=== PATIENT | male | born 1990 | race Two or more races ===

== ENCOUNTER 2023-06-04 18:17 | Emergency (ER) | payer BC ==
[~2023-06-04] VITALS: Ht 167.6 cm; Wt 48.0 kg
[2023-06-04 18:24] VITALS: BP 141/94; PULSE 91; RESP 16; TEMP 98.3; O2SAT 98
== END 2023-06-04 18:50 | disposition left against medical advice (07) ==
LOC: ER 18:17
DX: K08.89 Other specified disorders of teeth and supporting structures (principal); Z53.21 Procedure and treatment not carried out due to patient leaving prior to being seen by health care provider
CPT/HCPCS: 99281

== ENCOUNTER 2024-01-03 11:22 | Emergency (ER) | payer BC ==
[~2024-01-03] VITALS: Ht 154.9 cm; Wt 58.0 kg
[2024-01-03 11:28] VITALS: O2SAT 98
[2024-01-03 11:48] LABS: BASOPHILS % 0.5 % (0.0-2.0); EOSINOPHILS % 0.6 % (0.0-5.0); HEMATOCRIT. 43.9 % (42.0-52.0); HEMOGLOBIN. 14.8 g/dL (14.0-18.0); LYMPHOCYTES % 25.2 % (20.0-50.0); MEAN CORPUSCULAR HEMOGLOBIN 29.4 pg (28.0-32.0); MEAN CORPUSCULAR HGB CONC 33.8 g/dL (31.0-37.0); MEAN PLATELET VOLUME 8.1 fl (7.4-10.4); MONOCYTES % 3.5 % (2.0-8.0); NEUTROPHILS % 70.2 % (40.0-76.0); PLATELET 227 x1000/uL (130-400); RED BLOOD CELL COUNT 5.04 mill/uL (4.7-6.1); RED CELL DISTRIBUTION WIDTH 13.3 % (11.6-14.6); WHITE BLOOD COUNT 6.6 x1000/uL (4.5-11.0)
[2024-01-03 11:57] LABS: CHLORIDE 103 mEq/L (98-107); POTASSIUM 3.9 mEq/L (3.5-5.1); SODIUM 137 mEq/L (136-145)
[2024-01-03 11:58] LABS: CALCIUM 9.7 mg/dL (8.7-10.4); CARBON DIOXIDE 27 mEq/L (21-32)
[2024-01-03 12:03] LABS: CREATININE 0.9 mg/dL (0.6-1.3); GLUCOSE 119 mg/dL (70-105); UREA NITROGEN BLOOD 8 mg/dL (9-23)
[2024-01-03 13:04] LABS: CLARITY URINE CLOUDY (CLEAR); COLOR URINE YELLOW (YELLOW); GLUCOSE URINE NEGATIVE (NEGATIVE); KETONES URINE NEGATIVE (NEGATIVE); LEUKOCYTE ESTERASE URINE NEGATIVE (NEGATIVE); NITRITE URINE NEGATIVE (NEGATIVE); OCCULT BLOOD URINE NEGATIVE (NEGATIVE); PH URINE 7.5 (4.5-8.0); PROTEIN URINE NEGATIVE (NEGATIVE); SPECIFIC GRAVITY URINE 1.012 (1.005-1.030); UROBILINOGEN URINE 0.2 E.U./dL (0.2-1.0)
[2024-01-03 13:20] LABS: AMORPHOUS SEDIMENT URINE 3+ /lpf; BACTERIA URINE NONE SEEN; RBC URINE 0-2 /hpf (0-2); SQUAMOUS EPITHELIAL CELL URINE RARE /lpf (RARE/1+); WBC URINE NONE SEEN /hpf (0-2)
[2024-01-03 15:54] VITALS: BP 110/58; PULSE 88; RESP 16; TEMP 98.5
== END 2024-01-03 15:49 | disposition home or self-care (01) ==
LOC: ER 11:22
DX: R42 Dizziness and giddiness (principal); R00.2 Palpitations; F41.9 Anxiety disorder, unspecified; F19.90 Other psychoactive substance use, unspecified, uncomplicated; Z98.890 Other specified postprocedural states
CPT/HCPCS: 36415; 80048; 81003; 85025; 93005; 99284

== ENCOUNTER 2025-05-12 14:24 | Inpatient (IN) | payer SELFPAY ==
[~2025-05-12] VITALS: Ht 157.5 cm; Wt 61.7 kg
[2025-05-12 14:44] VITALS: O2SAT 98
[2025-05-12 16:17] LABS: BASOPHILS % 0.5 % (0.0-2.0); EOSINOPHILS % 0.0 % (0.0-5.0); HEMATOCRIT. 45.1 % (42.0-52.0); HEMOGLOBIN. 15.3 g/dL (14.0-18.0); LYMPHOCYTES % 8.3 % (20.0-50.0); MEAN PLATELET VOLUME 8.5 fl (7.4-10.4); MONOCYTES % 7.1 % (2.0-8.0); NEUTROPHILS % 84.1 % (40.0-76.0); PLATELET 186 x1000/uL (130-400); RED BLOOD CELL COUNT 5.32 mill/uL (4.7-6.1); RED CELL DISTRIBUTION WIDTH 13.7 % (11.6-14.6)
[2025-05-12 16:29] LABS: CREATININE 1.2 mg/dL (0.6-1.3); TROPONIN I HIGH SENSITIVITY < 4 ng/L (3.0-53); UREA NITROGEN BLOOD 8 mg/dL (9-23)
[2025-05-12 16:30] LABS: PROTEIN TOTAL 7.4 g/dL (6.0-8.3)
[2025-05-12 16:31] LABS: ASPARTATE AMINOTRANSFERASE 19 IU/L (<34); BILIRUBIN DIRECT 0.2 mg/dL (<=3.0); BILIRUBIN TOTAL 0.6 mg/dL (0.1-1.0)
[2025-05-12] MEDS: IBUPROFEN 600MG TABLET PO ONE ×2 (16:58→17:18)
[2025-05-12] MEDS: SODIUM CHLORIDE 0.9% (SEPSIS BOLUS) IV ONE ×2 (16:58→17:18)
[2025-05-12 16:59] LABS: INFLUENZA TYPE A Presumptive Negative (Pres. Neg.)
[2025-05-12 17:00] LABS: INFLUENZA TYPE B Presumptive Negative (Pres. Neg.)
[2025-05-12 17:01] LABS: RESPIRATORY SYNCYTIAL VIRUS Not Detected (Not Detectd)
[2025-05-12] MEDS: ACETAMINOPHEN 325MG TABLET PO ONE (17:18)
[2025-05-12] MEDS: CEFTRIAXONE 1GM/50ML 50 ML IV ONE (17:18)
[2025-05-12] MEDS: ACETAMINOPHEN 500MG TABLET PO ONE (17:23)
[2025-05-12 17:45] LABS: ETHANOL BLOOD < 10 mg/dL (<10)
[2025-05-12 17:46] LABS: TROPONIN I HIGH SENSITIVITY < 4 ng/L (3.0-53)
[2025-05-12] MEDS: AZITHROMYCIN 500MG/250ML 250 ML IV ONE (17:51)
[2025-05-12] MEDS ORDERED: DOCUSATE SODIUM 100MG CAPSULE PO PRN (20:30)
[2025-05-12] MEDS ORDERED: MAGNESIUM/ALUMINUM HYDROXIDE/SIMETHICONE 30ML UDC PO PRN (20:30)
[2025-05-12] MEDS ORDERED: DEXT 5%/LACTATED RINGERS 1,000 ML IV NR (20:30)
[2025-05-12] MEDS ORDERED: ACETAMINOPHEN 325MG TABLET PO PRN ×2 (20:30)
[2025-05-12] MEDS ORDERED: GUAIFENESIN 200MG/10ML SUGAR FREE UDC PO PRN (20:30)
[2025-05-12] MEDS ORDERED: ONDANSETRON HCL 4MG/2ML INJ IV PRN (20:30)
[2025-05-12] MEDS ORDERED: CLONIDINE 0.1MG TABLET PO PRN (20:30)
[2025-05-12] MEDS ORDERED: IPRATROPIUM/ALBUTEROL 0.5-3(2.5)MG/3ML NEB HHN PRN (20:30)
[2025-05-12] MEDS ORDERED: AZITHROMYCIN 500MG/250ML 250 ML IV SCH (20:45)
[2025-05-12] MEDS ORDERED: KETOROLAC 15MG/ML VIAL IV PRN (20:45)
[2025-05-12 21:00] VITALS: BP 100/59; PULSE 84; RESP 18; TEMP 37.808
[2025-05-12] MEDS ORDERED: AZITHROMYCIN 500 MG TABLET PO SCH (21:00)
[2025-05-12] MEDS: FAMOTIDINE 20MG TABLET PO SCH (21:40)
[2025-05-12] MEDS: LACTATED RINGERS 1,000 ML IV SCH (21:41)
[2025-05-12] MEDS: MAGNESIUM 2 G PREMIX 50 ML IV NR (21:41)
[2025-05-12] MEDS: GUAIFENESIN-DM 200MG-20MG/10ML UDC PO NR (21:41)
[2025-05-12] MEDS: MULTIVITAMINS,THER W-MINERALS TABLET PO SCH (21:45)
[2025-05-12 22:16] LABS: TROPONIN I HIGH SENSITIVITY < 4 ng/L (3.0-53)
[2025-05-13] VITALS: BP 113/73; PULSE 71; RESP 20; TEMP 36.9; O2SAT 96
[2025-05-13 04:00] VITALS: BP 120/75; PULSE 75; RESP 18; TEMP 36.4; O2SAT 98
[2025-05-13 07:00] LABS: BASOPHILS % 0.2 % (0.0-2.0); EOSINOPHILS % 0.0 % (0.0-5.0); HEMATOCRIT. 41.3 % (42.0-52.0); HEMOGLOBIN. 14.1 g/dL (14.0-18.0); LYMPHOCYTES % 24.1 % (20.0-50.0); MEAN PLATELET VOLUME 8.6 fl (7.4-10.4); MONOCYTES % 13.4 % (2.0-8.0); NEUTROPHILS % 62.3 % (40.0-76.0); PLATELET 162 x1000/uL (130-400); RED BLOOD CELL COUNT 4.86 mill/uL (4.7-6.1); RED CELL DISTRIBUTION WIDTH 13.5 % (11.6-14.6)
[2025-05-13 07:40] LABS: TROPONIN I HIGH SENSITIVITY < 4 ng/L (3.0-53)
[2025-05-13 07:48] LABS: T4 FREE 1.25 ng/dL (0.89-1.76)
[2025-05-13 07:49] LABS: CREATININE 0.8 mg/dL (0.6-1.3); TRIGLYCERIDE 86 mg/dL (0-150)
[2025-05-13 07:50] LABS: LDL CHOLESTEROL 101 mg/dL (5-100); UREA NITROGEN BLOOD 8 mg/dL (9-23)
[2025-05-13 07:52] LABS: PHOSPHORUS 3.1 mg/dL (2.5-4.9)
[2025-05-13 08:00] VITALS: BP 121/70; PULSE 70; RESP 18; TEMP 36.5; O2SAT 99
[2025-05-13 08:36] LABS: CLARITY URINE CLEAR (CLEAR); COLOR URINE YELLOW (YELLOW); GLUCOSE URINE NEGATIVE (NEGATIVE); KETONES URINE NEGATIVE (NEGATIVE); LEUKOCYTE ESTERASE URINE NEGATIVE (NEGATIVE); NITRITE URINE NEGATIVE (NEGATIVE); OCCULT BLOOD URINE NEGATIVE (NEGATIVE); PH URINE 6.5 (4.5-8.0); PROTEIN URINE NEGATIVE (NEGATIVE); SPECIFIC GRAVITY URINE 1.014 (1.005-1.030); UROBILINOGEN URINE 0.2 E.U./dL (0.2-1.0)
[2025-05-13 08:51] LABS: *AMPHETAMINES SCREEN URINE NEGATIVE (NEGATIVE); *BARBITURATES SCREEN URINE NEGATIVE (NEGATIVE); *BENZODIAZEPINES SCREEN URINE NEGATIVE (NEGATIVE)
[2025-05-13 08:52] LABS: *COCAINE SCREEN URINE NEGATIVE (NEGATIVE); CANNABINOID URINE SCREEN NEGATIVE (NEGATIVE); ECSTASY MDMA SCREEN URINE NEGATIVE (NEGATIVE); METHADONE URINE SCREEN NEGATIVE (NEGATIVE); OPIATES URINE SCREEN NEGATIVE (NEGATIVE); PHENCYCLIDINE URINE SCREEN NEGATIVE (NEGATIVE)
[2025-05-13] MEDS: ENOXAPARIN 40MG/0.4ML SYR SUBCUT SCH (09:00)
[2025-05-13 10:25] VITALS: BP 121/70; PULSE 70; RESP 18; TEMP 97.6
[2025-05-13] MEDS ORDERED: DEXTL PO (11:34)
[2025-05-13] MEDS ORDERED: AZIT500T8 PO (11:34)
[2025-05-13] MEDS ORDERED: TOPUD MT (11:34)
[2025-05-13] MEDS ORDERED: ALBU90AE INH (11:34)
[2025-05-13] MEDS ORDERED: AZITHROMYCIN 500 MG TABLET PO SCH (18:00)
[2025-05-13 18:34] LABS: PROTEIN TOTAL 7.8 g/dL (6.0-8.3)
[2025-05-13 18:35] LABS: ASPARTATE AMINOTRANSFERASE 15 IU/L (<34); BILIRUBIN DIRECT 0.2 mg/dL (<=3.0); BILIRUBIN TOTAL 0.6 mg/dL (0.1-1.0)
[2025-05-13 21:04] LABS: TROPONIN I HIGH SENSITIVITY 5 ng/L (3.0-53)
== END 2025-05-13 14:02 | disposition home or self-care (01) | DRG 139 ==
LOC: ER 14:24 → EDBEDREQ 16:38 → 7WST 18:35 → EDBEDREQ 18:37 → EDBEDREQTM 18:37 → ENRESERV 19:01
PROVIDERS: ADMIT Internal Medicine; ATTEND Internal Medicine
DX: J12.9 Viral pneumonia, unspecified (principal); N17.9 Acute kidney failure, unspecified; N18.9 Chronic kidney disease, unspecified; E83.42 Hypomagnesemia; R73.9 Hyperglycemia, unspecified
CPT/HCPCS: 36415; 71045; 80048; 80061; 80076; 80305; 80320; 81003; 82550; 83036; 83605; 83735; 84100; 84145; 84439; 84443; 84484; 85025; 85379; 85651; 87420; 87426; 87804; 93005; 99285; A4606; J0456; J0696; J1650; J3475; J7030; J7120; G0480